=== PATIENT | male | born 1945 | race Caucasian/White ===

== ENCOUNTER 2018-01-15 15:08 | Inpatient (IN) | payer MEDICARE ==
[~2018-01-15] VITALS: Ht 170.2 cm; Wt 63.1 kg
--- NOTE | ~2018-01-15 | MORECARE ---
CASE MANAGEMENT DISCHARGE SUMMARY PATIENT: EZE TANG UNIT: [id number] ADM DATE: 01/16/18 AGE: 73 : [birth year] SEX: M ROOM/BED: D.2130 AUTHOR: JUDI, PHYSICIAN: REFERRING PHYSICIAN: CHANTELLE SNOW MD DATE OF SERVICE: 01/16/18 Discharge Plan Patient Name: EZE TANG Facility: [facility]:[place] : 1945 Planned Disposition: Home Anticipated Discharge Date: 01/21/18 Discharge Date: Expected LOS: 5 Initial Reviewer: [email or web address] Initial Review Date: 01/20/2018 Generated: 01/20/18 7:10 pm Comments DCP- Discharge Planning Updated by [id number]: Deepak Johnson on 01/20/18 5:[address] Patient Name: EZE TANG Admission Status: ER Accout number: [id number] Admission Date: 01-16-2018 : 1945 Admission Diagnosis:CHEST PAIN, UNSPECIFIED Attending: CHANTELLE SNOW Current LOS: 4 Anticipated DC Date: 01-21-2018 Planned Disposition: Home Primary Insurance: MEDICARE A & B Discharge Planning Comments: * Is the patient Alert and Oriented? Yes 0 * How many steps to enterexit or inside your home? 4 0 * PCP NONE REPORTS FAMILY MEMBER IS WORKING TO GET PT IN TO DR. SNOW PRIMARY CARE DOCTOR 0 * Pharmacy [facility] [address] * Preadmission Environment Home with Family 0 * ADLs Independent 0 * Equipment None 0 * Other Equipment NO MEDICAL EQUIPMENT PROVIDER PREFERENCE 0 * List name and contact numbers for known caregivers / representatives who currently or will assist patient after discharge: ADELFO TANG, SPOUSE, 0 * Verbal permission to speak to the caregivers and representatives has been obtained from the patient. Yes 0 * Community resources currently utilized None 0 * Please name any agencies selected above. NONE 0 * Additional services required to return to the preadmission environment? No 0 * Can the patient safely return to the preadmission environment? Yes 0 * Has this patient been hospitalized within the prior 30 days at any hospital? No 0 CM RECEIVED ORDER FOR INPATIENT REHAB PRESCREENING. CM MET WITH PT AND SPOUSE IN ROOM TO DISCUSS DISCHARGE PLANNING AND NEEDS. EZE TANG provided verbal consent to discuss current and ongoing needs with/in the presence of: ADELFO, SPOUSE. PT REPORTS LIVING AT HOME INDEPENDENTLY WITH . PT HAS NO MEDICAL EQUIPMENT AND NO OUTSIDE SERVICES ASSISTING IN THE HOME. CM DISCUSSED AVAILABILITY OF HOME HEALTH, REHAB SERVICES AND MEDICAL EQUIPMENT. PT DENIES DISCHARGE NEEDS, REPORTS PLAN TO GO HOME, HIS WILL PICK HIM UP FOR DISCHARGE HOME. IMPORTANT MESSAGE FROM MEDICARE PROVIDED AND EXPLAINED. PT DECLINES REHAB, DENIES DISCHARGE NEEDS, DOES NOT WANT HOME HEALTH; PLAN TO DISCHARGE HOME WITH . Crematory Attendant: Deepak Johnson DCP- Discharge Planning Updated by [id number]: Eliza Ace on 01/16/18 6:[address] CM met with patient for dc needs/plans. Patient states he lives with his. Patient is in agreement with discussing dc plans in front of spouse. Patient states they have 4 step(s) with railing going into the home. Patient has been Independent with ADL's until the past 2 weeks. Now he has PROBLEMS WITH NOT BEING ABLE TO CLOSE RIGHT HAND. WEAKNESS IN LEGS BILATERAL. PCP: 0. [facility] : [facility]. DME: 0. HHS: O. Emergency contact: Lisseth Tang () #[phone]. Would benefit PT/OT. Patient states he feels safe returning to the home environment and at this time does not feel he will require additional services upon discharge. CM will assist with dc needs/plans PRN. Eliza Ace RN, CM DCPIA - Discharge Planning Initial Assessment Updated by [id number]: Deepak Johnson on 01/20/18 6:03 pm * Is the patient Alert and Oriented? Yes * How many steps to enterexit or inside your home? * PCP NONE REPORTS FAMILY MEMBER IS WORKING TO GET PT IN TO DR. SNOW PRIMARY CARE DOCTOR * [facility] * Preadmission Environment Home with Family * ADLs Independent * Equipment None * Other Equipment NO MEDICAL EQUIPMENT PROVIDER PREFERENCE * List name and contact numbers for known caregivers / representatives who currently or will assist patient after discharge: ADELFO TANG, SPOUSE, * Verbal permission to speak to the caregivers and representatives has been obtained from the patient. Yes * Community resources currently utilized None * Please name any agencies selected above. NONE * Additional services required to return to the preadmission environment? No * Can the patient safely return to the preadmission environment? Yes * Has this patient been hospitalized within the prior 30 days at any hospital? No Coverage Notice Reviewer: [id number] Flores Ace Notice Issued Date-Time: 01/16/2018 17:30 Notice Type: Medicare Outpatient Observation Notice Notice Delivered To: Patient Relationship to Patient: Self Twister Hand Name: Eze Tang Delivery Method: - Linda Days: Prior Verbal Notification: Recipient Understood Notice: Recipient Signature: Med Rec Note Co-signed by Attending: Coverage Notice Comment: Reviewer: [id number] - Deepak Johnson Notice Issued Date-Time: 01/20/2018 14:05 Notice Type: IM Discharge Notice Notice Delivered To: Patient Relationship to Patient: Twister Hand Name: Delivery Method: HAND - Hand Delivered Linda Days: Prior Verbal Notification: Recipient Understood Notice: Yes Recipient Signature: Yes Med Rec Note Co-signed by Attending: Coverage Notice Comment: Patient Name: EZE TANG Page [phone] All edits/amendments must be made on the electronic document DICTATION DATE: 01/20/181809 DIE REPAIRER FORGING: 01/20/181809 RPT#: [id number] DC DATE: STATUS: ADM IN [facility] [address] [place] [address] END OF REPORT
--- NOTE | ~2018-01-15 | EC ---
PATIENT:LYN BENITEZ DATE OF SERVICE: 01/16/18 SEX: M MEDICAL RECORD: [id number] DATE OF : [birth year] LOCATION:D.M2 D.213 AGE OF PATIENT: 73 ADMISSION DATE: 01/16/18 REFERRING PHYSICIAN: INTERPRETING PHYSICIAN: RYAN VITAL MD ECHOCARDIOGRAM REPORT ECHO CHARGES 4 ECHO COMPLETE Date: 01/16 CLINICAL DIAGNOSIS: CP ECHOCARDIOGRAPHIC MEASUREMENTS (adult normal given) AC root (d.<3.7cm) 3.6 cm LV Septum d (<1.2 cm> 1.1 cm Valve Excursion 2.0 cm LV Septum (systole) 1.6 cm Left Atria (s.<4.0cm> 2.5 cm LVPW d(<1.2cm) 1.0 cm RV (d.<2.3cm) 2.7 cm LVPW (sytole) 1.7 cm LV diastole(<5.6CM) 4.1 cm MV E-F(>70mm/sec) cm LV systole 2.4 cm LVOT Diameter 2.2 cm MV exc.(>10mm) cm Est.ejection fraction (50-75%) % DOPPLER: LVIT cm/sec A 45.0 cm/sec E 65.0 cm/sec LA cm/sec RVSP 21.0 mmHg LVOT 104 cm/sec AOP1/2T m/s Asc. Ao 122 cm/sec RVOT 53.0 cm/sec RA cm/sec PA 73.0 cm/sec AV Gradient Peak 6.0 mmHg AV Mean 3.1 mmHg AV Area 2.4 cm MV Gradient Peak 2.6 mmHg MV Mean 1.0 mmHg MV Area cm COMMENTS: Truck Terminal Manager: Oscar ELIZALDEOE Global Logistics Analyst: Kenna Vital TAPE# PACS Pericardial Effusion N DATE OF SERVICE: PROCEDURE: Transthoracic echocardiogram. FINDINGS: 1. Left ventricle is hyperdynamic. Ejection fraction is 65%. The left atrium is normal size, shape, and function. 2. The aortic valve is normal. 3. The mitral valve is normal. 4. The tricuspid valve is normal. ECHOCARDIOGRAM REPORT [id number] LYN BENITEZ 5. The pericardium is normal. 6. The right ventricle is normal. 7. The right atrium is normal. 8. The pulmonic valve is normal. 9. There is no pericardial effusion. CONCLUSIONS: The patient has normal echocardiogram for stated age. TRANSINT:[id number] Voice Confirmation ID: [id number] DOCUMENT ID: [id number] RYAN VITAL MD at 1702 CC: [id number] DICTATION DATE: 01/17/18 0756 PULMONARY FUNCTION TECHNICIAN: 01/17/18 1118 ADM [address] [facility] [id number] [place] [address]
[2018-01-15 08:00] VITALS: BP 118/73
[2018-01-15] MEDS ORDERED: ASPIRIN325 MG PO (15:20)
[2018-01-15] MEDS ORDERED: CARDIZEM60 MG (15:21)
[2018-01-15 15:43] LABS: BASOPHILS 0.2 % (0-2); EOSINOPHILS 2.8 % (0-7); HEMATOCRIT 36.6 % (42.0-54.0); HEMOGLOBIN 11.9 g/dL (13.5-17.5); IMMATURE GRANULOCYTES 0.1 % (0-5); LYMPHOCYTES 18.8 % (15-50); MCH 29.2 pg (26.0-34.0); MCHC 32.5 g/dL (31.0-37.0); MCV 89.9 fL (80.0-100.0); MEAN PLATELET VOLUME 9.3 fL (7.4-10.4); MONOCYTES 8.9 % (2-11); NEUTROPHILS 69.2 % (40-80); RBC 4.07 10x6/uL (4.20-6.10); RDW 15.4 % (11.5-14.5); WBC 8.2 10x3/uL (4.8-10.8)
[2018-01-15 15:49] LABS: PLATELET COUNT 293 10x3/uL (130-400)
[2018-01-15 16:01] LABS: ALBUMIN 3.2 g/dL (3.4-5.0); ALKALINE PHOSPHATASE 99 U/L (46-116); ALT (SGPT) 16 U/L (10-68); BILIRUBIN - TOTAL 0.43 mg/dL (0.2-1.3); CALC OSMOLALITY 277 mosm/kg (275-300); CALCIUM 9.2 mg/dL (8.5-10.1); CARBON DIOXIDE 25.9 mmol/L (21.0-32.0); CHLORIDE - SERUM 104 mmol/L (98-107); CREATININE - SERUM 1.1 mg/dL (0.6-1.3); POTASSIUM - SERUM 4.2 mmol/L (3.5-5.1); PROTEIN - SERUM 7.8 g/dL (6.4-8.2); SODIUM 136 mmol/L (136-145); UREA NITROGEN 20 mg/dL (7-18); eGFR NON AFRICAN AMERICAN 70 mL/min (90-120)
[2018-01-15 16:02] LABS: GLUCOSE 144 mg/dL (74-106)
[2018-01-15 16:05] LABS: CREATINE KINASE 38 UL (21-232)
[2018-01-15 16:05] LABS: APPEARANCE CLEAR (CLEAR); BILIRUBIN NEGATIVE (NEGATIVE); COLOR YELLOW (YELLOW); GLUCOSE NEGATIVE (NEGATIVE); KETONE NEGATIVE (NEGATIVE); NITRITE NEGATIVE (NEGATIVE); PROTEIN NEGATIVE (NEGATIVE); UROBILINOGEN NORMAL (NORMAL)
[2018-01-15 16:06] LABS: TROPONIN-I < 0.017 ng/mL (0.000-0.060)
[2018-01-15 16:22] VITALS: BP 160/72
[2018-01-15 16:28] LABS: C-REACTIVE PROTEIN 9.6 mg/dL (0.0-0.9); THYROID STIMULATING HORMONE 1.99 uIU/mL (0.36-3.74)
[2018-01-15 17:04] VITALS: BP 129/85
[2018-01-15 18:25] VITALS: BP 131/72
[2018-01-15 18:28] LABS: AMYLASE - SERUM 45 U/L (25-115); LIPASE 96 U/L (73-393)
[2018-01-15 19:38] VITALS: BP 156/82
[2018-01-15 20:23] LABS: ERYTHROCYTE SEDIMENTATION RATE 44 mm/hr (0-20)
[2018-01-15 21:25] VITALS: BP 110/73
[2018-01-16] VITALS (7 sets, daily range): BP systolic 97–130; BP diastolic 53–73; BMI 21.5
[2018-01-16 05:00] LABS: BASOPHILS 0.2 % (0-2); EOSINOPHILS 0 % (0-7); HEMATOCRIT 35.7 % (42.0-54.0); HEMOGLOBIN 11.5 g/dL (13.5-17.5); IMMATURE GRANULOCYTES 0.4 % (0-5); MCH 28.9 pg (26.0-34.0); MCHC 32.2 g/dL (31.0-37.0); MCV 89.7 fL (80.0-100.0); MEAN PLATELET VOLUME 9.6 fL (7.4-10.4); MONOCYTES 0.7 % (2-11); NEUTROPHILS 88.7 % (40-80); PLATELET COUNT 289 10x3/uL (130-400); RBC 3.98 10x6/uL (4.20-6.10); RDW 15.4 % (11.5-14.5)
[2018-01-16 05:03] LABS: ANION GAP 11.7 mmol/L (8-16); CALCIUM 9.1 mg/dL (8.5-10.1); CARBON DIOXIDE 27.4 mmol/L (21.0-32.0); CREATININE - SERUM 1.1 mg/dL (0.6-1.3)
[2018-01-16 05:06] LABS: POTASSIUM - SERUM 5.1 mmol/L (3.5-5.1)
[2018-01-16 05:10] LABS: WBC 5.5 10x3/uL (4.8-10.8)
[2018-01-16] MEDS ORDERED: LIPITOR80 MG PO (09:51)
[2018-01-16] MEDS ORDERED: COREG 3.1253.125 MG PO (09:52)
[2018-01-16] MEDS ORDERED: CARDIZEM60 MG PO (11:24)
[2018-01-16 15:18] LABS: % SATURATION 9 % (15-55); IRON 25 ug/dl (35-150); TOTAL IRON BIND CAPACITY 259 ug/dl (260-445); UNSAT IRON BIND CAPACITY 234 ug/dl (150-375)
[2018-01-16 15:32] LABS: FERRITIN 110 ng/mL (3-244); LDH 396 U/L (85-227)
[2018-01-17] VITALS: BP 111/54
[2018-01-17 04:00] VITALS: BP 110/67
[2018-01-17 04:38] LABS: BASOPHILS 0.1 % (0-2); EOSINOPHILS 0.8 % (0-7); HEMATOCRIT 31.2 % (42.0-54.0); HEMOGLOBIN 10.3 g/dL (13.5-17.5); IMMATURE GRANULOCYTES 0.2 % (0-5); LYMPHOCYTES 21.5 % (15-50); MCH 29.3 pg (26.0-34.0); MCV 88.6 fL (80.0-100.0); MEAN PLATELET VOLUME 9.3 fL (7.4-10.4); MONOCYTES 7.1 % (2-11); NEUTROPHILS 70.3 % (40-80); PLATELET COUNT 280 10x3/uL (130-400); RBC 3.52 10x6/uL (4.20-6.10); RDW 15.6 % (11.5-14.5)
[2018-01-17 04:40] LABS: WBC 9.5 10x3/uL (4.8-10.8)
[2018-01-17 05:10] LABS: ALBUMIN 2.5 g/dL (3.4-5.0); ALKALINE PHOSPHATASE 80 U/L (46-116); ALT (SGPT) 17 U/L (10-68); BILIRUBIN - TOTAL 0.26 mg/dL (0.2-1.3); CALCIUM 8.7 mg/dL (8.5-10.1); CARBON DIOXIDE 27.7 mmol/L (21.0-32.0); CHLORIDE - SERUM 106 mmol/L (98-107); PROTEIN - SERUM 6.5 g/dL (6.4-8.2); SODIUM 140 mmol/L (136-145); eGFR NON AFRICAN AMERICAN 78 mL/min (90-120)
[2018-01-17 05:12] LABS: CALC OSMOLALITY 283 mosm/kg (275-300); GLUCOSE 100 mg/dL (74-106); POTASSIUM - SERUM 4.2 mmol/L (3.5-5.1); UREA NITROGEN 26 mg/dL (7-18)
[2018-01-17 08:55] VITALS: BP 120/62; BP 168/78
[2018-01-17 12:26] VITALS: BP 133/60
[2018-01-17 13:47] VITALS: Ht 170.2 cm; Wt 63.1 kg
[2018-01-17 17:36] VITALS: BP 114/63
[2018-01-17 20:00] VITALS: BP 132/69
[2018-01-18 05:56] LABS: BASOPHILS 0.2 % (0-2); EOSINOPHILS 0.6 % (0-7); HEMATOCRIT 32.5 % (42.0-54.0); HEMOGLOBIN 10.6 g/dL (13.5-17.5); IMMATURE GRANULOCYTES 0.1 % (0-5); LYMPHOCYTES 12.3 % (15-50); MCHC 32.6 g/dL (31.0-37.0); MCV 88.8 fL (80.0-100.0); MEAN PLATELET VOLUME 9.8 fL (7.4-10.4); MONOCYTES 9.6 % (2-11); NEUTROPHILS 77.2 % (40-80); PLATELET COUNT 291 10x3/uL (130-400); RBC 3.66 10x6/uL (4.20-6.10); RDW 15.7 % (11.5-14.5); WBC 10.7 10x3/uL (4.8-10.8)
[2018-01-18 06:17] LABS: ALBUMIN 2.6 g/dL (3.4-5.0); ALKALINE PHOSPHATASE 96 U/L (46-116); BILIRUBIN - TOTAL 0.48 mg/dL (0.2-1.3); CALC OSMOLALITY 269 mosm/kg (275-300); CALCIUM 8.6 mg/dL (8.5-10.1); CARBON DIOXIDE 28.1 mmol/L (21.0-32.0); CHLORIDE - SERUM 100 mmol/L (98-107); CREATININE - SERUM 0.9 mg/dL (0.6-1.3); GLUCOSE 115 mg/dL (74-106); POTASSIUM - SERUM 4.2 mmol/L (3.5-5.1); PROTEIN - SERUM 6.7 g/dL (6.4-8.2); SODIUM 132 mmol/L (136-145); UREA NITROGEN 25 mg/dL (7-18); eGFR NON AFRICAN AMERICAN 88 mL/min (90-120)
[2018-01-18 06:18] LABS: ALT (SGPT) 28 U/L (10-68)
[2018-01-18 08:19] LABS: FOLATE (FOLIC ACID) - SERUM >20.0 ng/mL (>3.0)
[2018-01-18 09:18] LABS: CA 19-9 16 U/mL (0-35); CEA 3.1 ng/mL (0.0-4.7)
[2018-01-18 12:04] VITALS: BP 118/62
[2018-01-18 15:30] VITALS: BP 117/62
[2018-01-18 15:33] LABS: ERYTHROCYTE SEDIMENTATION RATE 36 mm/hr (0-20)
[2018-01-18 20:00] VITALS: BP 123/61
[2018-01-19] VITALS: BP 118/58
[2018-01-19 04:00] VITALS: BP 108/55
[2018-01-19 05:43] LABS: BASOPHILS 0.1 % (0-2); EOSINOPHILS 0.5 % (0-7); HEMATOCRIT 32.2 % (42.0-54.0); HEMOGLOBIN 10.7 g/dL (13.5-17.5); IMMATURE GRANULOCYTES 0.3 % (0-5); LYMPHOCYTES 12.9 % (15-50); MCH 29.3 pg (26.0-34.0); MCHC 33.2 g/dL (31.0-37.0); MCV 88.2 fL (80.0-100.0); MEAN PLATELET VOLUME 9.7 fL (7.4-10.4); MONOCYTES 7.6 % (2-11); NEUTROPHILS 78.6 % (40-80); PLATELET COUNT 279 10x3/uL (130-400); RBC 3.65 10x6/uL (4.20-6.10); RDW 15.8 % (11.5-14.5)
[2018-01-19 05:56] LABS: ALBUMIN 2.5 g/dL (3.4-5.0); ALKALINE PHOSPHATASE 98 U/L (46-116); ALT (SGPT) 23 U/L (10-68); BILIRUBIN - TOTAL 0.88 mg/dL (0.2-1.3); CALC OSMOLALITY 266 mosm/kg (275-300); CALCIUM 8.8 mg/dL (8.5-10.1); CARBON DIOXIDE 27.8 mmol/L (21.0-32.0); CHLORIDE - SERUM 97 mmol/L (98-107); GLUCOSE 108 mg/dL (74-106); POTASSIUM - SERUM 3.8 mmol/L (3.5-5.1); PROTEIN - SERUM 7.1 g/dL (6.4-8.2); SODIUM 131 mmol/L (136-145); UREA NITROGEN 20 mg/dL (7-18); eGFR NON AFRICAN AMERICAN 78 mL/min (90-120)
[2018-01-19 06:16] LABS: HEPATITIS C ANTIBODY 0.2 (0.0-0.9)
[2018-01-19 11:15] VITALS: BP 101/57
[2018-01-19 14:50] VITALS: BP 115/56
[2018-01-19 19:54] VITALS: BP 97/47
[2018-01-19 23:22] VITALS: BP 99/48
[2018-01-20 05:49] VITALS: BP 92/54
[2018-01-20 06:22] LABS: BASOPHILS 0.1 % (0-2); EOSINOPHILS 2.8 % (0-7); HEMATOCRIT 33.3 % (42.0-54.0); HEMOGLOBIN 10.8 g/dL (13.5-17.5); IMMATURE GRANULOCYTES 0.1 % (0-5); LYMPHOCYTES 15.7 % (15-50); MCH 28.8 pg (26.0-34.0); MCHC 32.4 g/dL (31.0-37.0); MCV 88.8 fL (80.0-100.0); MEAN PLATELET VOLUME 9.2 fL (7.4-10.4); MONOCYTES 9.3 % (2-11); PLATELET COUNT 270 10x3/uL (130-400); RBC 3.75 10x6/uL (4.20-6.10); RDW 15.6 % (11.5-14.5); WBC 7.6 10x3/uL (4.8-10.8)
[2018-01-20 06:42] LABS: ALBUMIN 2.5 g/dL (3.4-5.0); ALKALINE PHOSPHATASE 95 U/L (46-116); ALT (SGPT) 22 U/L (10-68); BILIRUBIN - TOTAL 0.52 mg/dL (0.2-1.3); CALC OSMOLALITY 275 mosm/kg (275-300); CALCIUM 8.6 mg/dL (8.5-10.1); CARBON DIOXIDE 31.1 mmol/L (21.0-32.0); CHLORIDE - SERUM 101 mmol/L (98-107); CREATININE - SERUM 0.9 mg/dL (0.6-1.3); GLUCOSE 101 mg/dL (74-106); PROTEIN - SERUM 6.2 g/dL (6.4-8.2); SODIUM 137 mmol/L (136-145); UREA NITROGEN 17 mg/dL (7-18); eGFR NON AFRICAN AMERICAN 88 mL/min (90-120)
[2018-01-20 07:43] VITALS: BP 131/67
[2018-01-20 09:51] VITALS: BP 107/55
[2018-01-20 11:40] VITALS: BP 136/71
[2018-01-20 15:53] VITALS: BP 131/66
[2018-01-20 20:33] VITALS: BP 120/60
[2018-01-21] VITALS: BP 99/51
[2018-01-21 05:36] VITALS: BP 107/47
[2018-01-21 05:59] LABS: BASOPHILS 0.1 % (0-2); EOSINOPHILS 3.6 % (0-7); HEMATOCRIT 31.4 % (42.0-54.0); HEMOGLOBIN 10.1 g/dL (13.5-17.5); IMMATURE GRANULOCYTES 0.3 % (0-5); LYMPHOCYTES 15.6 % (15-50); MCH 28.5 pg (26.0-34.0); MCHC 32.2 g/dL (31.0-37.0); MCV 88.7 fL (80.0-100.0); MEAN PLATELET VOLUME 9.3 fL (7.4-10.4); MONOCYTES 9.5 % (2-11); NEUTROPHILS 70.9 % (40-80); PLATELET COUNT 284 10x3/uL (130-400); RBC 3.54 10x6/uL (4.20-6.10); RDW 15.6 % (11.5-14.5); WBC 7.3 10x3/uL (4.8-10.8)
[2018-01-21 06:32] LABS: ALBUMIN 2.3 g/dL (3.4-5.0); ALKALINE PHOSPHATASE 84 U/L (46-116); ALT (SGPT) 23 U/L (10-68); BILIRUBIN - TOTAL 0.47 mg/dL (0.2-1.3); CALC OSMOLALITY 277 mosm/kg (275-300); CALCIUM 8.6 mg/dL (8.5-10.1); CARBON DIOXIDE 29.6 mmol/L (21.0-32.0); CHLORIDE - SERUM 101 mmol/L (98-107); CREATININE - SERUM 0.9 mg/dL (0.6-1.3); GLUCOSE 98 mg/dL (74-106); POTASSIUM - SERUM 3.6 mmol/L (3.5-5.1); PROTEIN - SERUM 6.6 g/dL (6.4-8.2); SODIUM 138 mmol/L (136-145); UREA NITROGEN 18 mg/dL (7-18); eGFR NON AFRICAN AMERICAN 88 mL/min (90-120)
[2018-01-21 08:19] VITALS: BP 111/58
[2018-01-21 11:23] VITALS: BP 100/55
[2018-01-21] MEDS ORDERED: CARAFATE1 G/10 ML PO (12:52)
[2018-01-21] MEDS ORDERED: PROTONIX40 MG PO (12:52)
[2018-01-21] MEDS ORDERED: NEURONTIN 300300 MG PO (12:55)
[2018-01-21] MEDS ORDERED: NORCO 7.5/325 T1 TA1 PO (12:55)
[2018-01-24 11:11] LABS: ANGIOTENSIN CONVERTING ENZYME 39 U/L (14-82)
[2018-01-24 13:17] LABS: ANA REFLEX - DIRECT Negative (Negative)
[2018-01-25 06:14] LABS: IGG SUBCLASS 1 738 mg/dL (248-810); IGG SUBCLASS 2 184 mg/dL (130-555); IGG SUBCLASS 3 34 mg/dL (15-102); IGG SUBCLASS 4 11 mg/dL (2-96)
[2018-01-25 17:12] LABS: FUNGAL - ASP FLAVUS Negative (Neg:<1:1); FUNGAL - ASP NIGER Negative (Neg:<1:1); FUNGAL - ASPER FUMIGATUS Negative (Neg:<1:1)
== END 2018-01-21 15:47 | disposition home or self-care (01) | DRG 815 ==
LOC: OBSVTIME → D.ER 15:08 → D.M2 21:17 → D.ER 21:25 → D.EDHOLD 21:25 → OBSVTIME 21:25 → D.M2 21:25 → D.EDHOLD 21:46 → D.M2 01-16 19:37 → D.SDCHOLD 01-20 14:26 → D.M2 01-20 14:26 → D.SDCHOLD 01-20 14:29 → D.M2 01-20 14:29
PROVIDERS: Emergency Medicine; Family Medicine; Internal Medicine Hematology & Oncology; Internal Medicine Nephrology; Internal Medicine Pulmonary Disease
DX: R59.1 Generalized enlarged lymph nodes (principal); N17.9 Acute kidney failure, unspecified; R61 Generalized hyperhidrosis; D64.9 Anemia, unspecified; M79.641 Pain in right hand; J44.9 Chronic obstructive pulmonary disease, unspecified; I25.10 Atherosclerotic heart disease of native coronary artery without angina pectoris; Z95.1 Presence of aortocoronary bypass graft; R50.9 Fever, unspecified